=== PATIENT | female | born 1990 | race Hispanic/Latino ===

== ENCOUNTER 2022-11-11 08:48 | Inpatient (IN) | payer OTHER ==
[~2022-11-11] VITALS: Ht 160 cm; Wt 68.0 kg
[2022-11-11] VITALS (21 sets, daily range): BP systolic 95–130; BP diastolic 47–81
[2022-11-11 09:30] LABS: BASOPHILS % (AUTO) 0.2 % (0.0-5.0); EOSINOPHILS % (AUTO) 1.8 % (0.0-8.0); HEMATOCRIT 39.3 % (36-48); LYMPHOCYTES % (AUTO) 20.1 % (21.0-51.0); MEAN CORPUSCULAR HEMOGLOBIN 28.2 pg (27.0-33.0); MEAN CORPUSCULAR HGB CONC 32.8 g/dL (32.0-36.0); MONOCYTES % (AUTO) 5.1 % (3.0-13.0); NEUTROPHILS % (AUTO) 72.4 % (40.0-77.0); PLATELET COUNT (AUTO) 252 K/uL (130-400); RED BLOOD CELL COUNT(AUTO) 4.57 MIL/uL (4.00-5.50); RED CELL DISTRIBUTION WIDTH 12.7 % (11.0-15.5); WHITE BLOOD COUNT (AUTO) 12.7 K/uL (4.8-10.8)
[2022-11-11 09:41] LABS: CARBON DIOXIDE 30 mmol/L (21-32); CHLORIDE 101 mmol/L (101-111); CREATININE 0.8 mg/dL (0.5-1.5); GLOMERULAR FILTR. RATE CALC 102 mL/min (>90); GLUCOSE,RANDOM 106 mg/dL (70-105); POTASSIUM 3.5 mmol/L (3.5-5.1); SODIUM SERUM 137 mmol/L (136-145); UREA NITROGEN, BLOOD 10 mg/dL (7-18)
[2022-11-11 09:45] LABS: ALANINE AMINOTRANSFERASE 35 U/L (12-78); ALBUMIN 3.5 g/dL (3.5-5.0); ASPARTATE AMINOTRANSFERASE 16 U/L (10-37); TOTAL PROTEIN, SERUM 7.2 g/dL (6.0-8.3)
[2022-11-11 09:49] LABS: APPEARANCE,URINE CLEAR (CLEAR); BILIRUBIN,URINE NEGATIVE (NEGATIVE); COLOR,URINE YELLOW (YELLOW); GLUCOSE, URINE (UA) NEGATIVE (NEGATIVE); KETONES,URINE NEGATIVE (NEGATIVE); LEUKOCYTE ESTERASE ,URINE NEGATIVE Leu/uL (NEGATIVE); NITRATE,URINE NEGATIVE (NEGATIVE); OCCULT BLOOD,URINE NEGATIVE (NEGATIVE); PH,URINE 7.5 (5.0-8.0); PROTEIN,URINE 30 mg/dL (NEGATIVE); UROBILINOGEN,URINE 0.2 mg/dL (0.2-1.0)
[2022-11-11 09:51] LABS: LIPASE < 50 U/L (114-286)
[2022-11-11] MEDS ORDERED: KETOROLAC 30MG VIAL (30MG/ML) IM ONE (10:00)
[2022-11-11 10:03] LABS: MUCUS,URINE RARE LPF (None Seen); RBC,URINE 0-1 /HPF (0-1); SQUAMOUS EPITHELIAL CELL,UR RARE /HPF (0-2)
[2022-11-11] MEDS ORDERED: KETOROLAC 30MG VIAL (30MG/ML) IVP ONE (10:30)
[2022-11-11] MEDS ORDERED: MORPHINE 4 MG SYG IVP ONE (11:00)
[2022-11-11] MEDS ORDERED: ONDANSETRON 4MG INJ IVP ONE (11:00)
[2022-11-11] MEDS ORDERED: ZOSYN 3.375GM +NS 50ML IVPB ONE (11:00)
[2022-11-11] MEDS ORDERED: KETOROLAC 15MG/ML VIAL (15MG/ML) IV PRN (12:00)
[2022-11-11] MEDS ORDERED: MORPHINE 2 MG SYG IVP PRN (12:00)
[2022-11-11] MEDS: 0.9%NACL 1000ML 1,000 ML IV SCH (12:17)
[2022-11-11 14:07] LABS: INR 0.93 (0.85-1.15); PROTHROMBIN TIME 10.4 SEC (9.6-11.6)
[2022-11-11 14:08] LABS: PARTIAL THROMBOPLASTIN TIME 27.4 SEC (26.3-35.5)
[2022-11-11] MEDS ORDERED: CEFAZOLIN SODIUM 1 GM VIAL ONE (16:41)
[2022-11-11] MEDS ORDERED: BUPIVACAINE/PF 0.25% 30ML VIAL IJ ONE (16:42)
[2022-11-11] MEDS ORDERED: LIDOCAINE PF 100MG/5ML (2%) SYRINGE 5ML ONE (16:43)
[2022-11-11] MEDS ORDERED: MIDAZOLAM HCL 1 MG/ML 2ML VIAL ONE (16:44)
[2022-11-11] MEDS ORDERED: PROPOFOL 10 MG/ML 20ML VIAL IV ONE (16:45)
[2022-11-11] MEDS ORDERED: ROCURONIUM 10MG/1ML SYR 10 MG/ML ML ONE (16:45)
[2022-11-11] MEDS ORDERED: FENTANYL CITRATE PF 50 MCG/1 ML 5ML AMP IV ONE (16:45)
[2022-11-11] MEDS ORDERED: 0.9%NACL 50ML IV SCH (17:00)
[2022-11-11] MEDS ORDERED: DEXAMETHASONE SOD PHOSPHATE 10MG/ML 1ML VIAL ONE (17:04)
[2022-11-11] MEDS ORDERED: ONDANSETRON 4MG INJ ONE (17:04)
[2022-11-11] MEDS ORDERED: LIDOCAINE 1%-EPI 1:100,000 20 ML VIAL IJ ONE (17:11)
[2022-11-11] MEDS ORDERED: NEOSTIGMINE 5MG/5ML SYR IV ONE (17:53)
[2022-11-11] MEDS ORDERED: GLYCOPYRROLATE 1 MG/5 ML SYRINGE ONE (17:53)
[2022-11-11] MEDS ORDERED: KETOROLAC 30MG VIAL (30MG/ML) ONE (17:54)
[2022-11-11] MEDS ORDERED: METOCLOPRAMIDE 10 MG/2 ML VIAL IVP PRN (20:00)
[2022-11-11] MEDS ORDERED: OXYCODONE/ACETAMIN 5/325MG TAB PO PRN (20:00)
[2022-11-11] MEDS: ONDANSETRON 4MG INJ IVP PRN (20:12)
[2022-11-11] MEDS: HYDROMORPHONE 1 MG INJ IVP PRN (20:12)
[2022-11-11] MEDS: ZOSYN 3.375GM +NS 50ML IVPB SCH (20:13)
[2022-11-12] MEDS: HYDROMORPHONE 1 MG INJ IVP PRN (00:27)
[2022-11-12 03:35] VITALS: BP 122/74
[2022-11-12] MEDS: ONDANSETRON 4MG INJ IVP PRN (03:42)
[2022-11-12] MEDS: ZOSYN 3.375GM +NS 50ML IVPB SCH (04:17)
[2022-11-12] MEDS: 0.9%NACL 1000ML 1,000 ML IV SCH (06:06)
[2022-11-12 07:11] VITALS: BP 110/65
[2022-11-12] MEDS ORDERED: ACET-2079 PO (07:35)
[2022-11-12] MEDS ORDERED: AUGMENTIN PO (07:36)
[2022-11-12] MEDS ORDERED: ONDA22I IM (07:37)
[2022-11-12] MEDS ORDERED: POLY17PO4 PO (07:37)
[2022-11-12 07:41] LABS: BASOPHILS % (AUTO) 0.1 % (0.0-5.0); HEMATOCRIT 39.4 % (36-48); LYMPHOCYTES % (AUTO) 8.4 % (21.0-51.0); MEAN CORPUSCULAR VOLUME 87.9 fL (79-99); MONOCYTES % (AUTO) 1.2 % (3.0-13.0); NEUTROPHILS % (AUTO) 89.7 % (40.0-77.0); PLATELET COUNT (AUTO) 239 K/uL (130-400); RED BLOOD CELL COUNT(AUTO) 4.48 MIL/uL (4.00-5.50); RED CELL DISTRIBUTION WIDTH 12.6 % (11.0-15.5); WHITE BLOOD COUNT (AUTO) 14.2 K/uL (4.8-10.8)
[2022-11-12 08:16] LABS: ALBUMIN 3.5 g/dL (3.5-5.0); CREATININE 0.6 mg/dL (0.5-1.5); POTASSIUM 3.7 mmol/L (3.5-5.1); TOTAL PROTEIN, SERUM 7.3 g/dL (6.0-8.3)
== END 2022-11-12 10:05 | disposition home or self-care (01) | DRG 418 ==
LOC: EDH 08:48 → EDHIP 08:49 → WSH 18:40 → UNDODISIN 11-12 10:05
PROVIDERS: ADMIT Internal Medicine; ATTEND Internal Medicine
PROC: 0WQF0ZZ Repair Abdominal Wall, Open Approach (ICD-10-PCS; 2022-11-11)
PROC: 0DBU0ZZ Excision of Omentum, Open Approach (ICD-10-PCS; 2022-11-11)
PROC: 0FT44ZZ Resection of Gallbladder, Percutaneous Endoscopic Approach (ICD-10-PCS; principal; 2022-11-11 17:11)
DX: K80.20 Calculus of gallbladder without cholecystitis without obstruction (principal); K42.0 Umbilical hernia with obstruction, without gangrene
CPT/HCPCS: 36415; 76705; 80053; 81001; 83036; 83690; 84443; 84703; 85025; 85610; 85730; G0378; J0690; J1100; J1170; J1885; J2001; J2250; J2270; J2405; J2543; J2704; J2710; J2765; J3010; J3490; J7030